=== PATIENT | female | born 1965 | race Caucasian/White ===

== ENCOUNTER 2025-06-11 09:56 | Outpatient (CLI) | payer BC ==
[2025-06-11 11:57] LABS: #Basophils 0.08 10x3/uL (0.0-0.2); #Eosinophils 0.37 10x3/uL (0.0-0.7); #Monocytes 0.76 10x3/uL (0.11-0.59); #Neutrophils 4.20 10x3/uL (1.40-6.50); %Basophils 1.0 % (0.0-1.0); %Eosinophils 4.5 % (0.0-10.0); %Lymphocytes 33.3 % (21.0-51.0); %Monocytes 9.3 % (0.0-10.0); %Neutrophils 51.3 % (42.0-75.0); Hematocrit 43.6 % (36.0-47.0); Hemoglobin 14.3 g/dL (12.0-16.0); Mean Corpuscular Hemoglobin 30.7 pg (27.0-31.0); Mean Corpuscular Volume 93.6 fL (78.0-98.0); Platelet Count 239 10x3/uL (130-400); Red Blood Cell (RBC) Count 4.66 mill/uL (4.20-5.40); White Blood Cell (WBC) Count 8.19 10x3/uL (4.8-10.8)
[2025-06-11 12:15] LABS: ALT (SGPT) 21 U/L (Less than 34); AST (SGOT) 20 U/L (11-34); Albumin 3.6 g/dL (3.1-4.5); Alkaline Phosphatase 84 U/L (40-110); Anion Gap 15 mmol/L (10-20); BUN (Urea Nitrogen) 19 mg/dL (9.8-20.1); Bilirubin, Total 0.6 mg/dL (0.3-1.2); Calc. Creatinine Clearance 0 mL/min (70-130); Calcium 9.1 mg/dL (7.8-10.44); Carbon Dioxide 25 mmol/L (23-31); Chloride 107 mmol/L (98-107); Globulin 3.0 g/dL (2.4-3.5); Glucose 97 mg/dL (80-115); Potassium 3.7 mmol/L (3.5-5.1); Sodium 143 mmol/L (136-145)
[2025-06-11 12:20] LABS: INR-International Normal Ratio 1.0; Prothrombin Time 13.4 sec (12.0-14.7)
== END 2025-06-11 09:57 | disposition home or self-care (01) ==
LOC: LABBT 09:56
PROVIDERS: ATTEND Orthopaedic Surgery
DX: Z01.818 Encounter for other preprocedural examination (principal); M17.11 Unilateral primary osteoarthritis, right knee
CPT/HCPCS: 80053; 85025; 85610; 87081; 93005; 93010

== ENCOUNTER 2025-06-11 10:40 | Outpatient (CLI) | payer BC | END 2025-06-11 10:41 | disposition home or self-care (01) | LOC: CT 10:40 | PROVIDERS: ATTEND Orthopaedic Surgery | DX: Z01.818 Encounter for other preprocedural examination (principal); M17.11 Unilateral primary osteoarthritis, right knee ==

== ENCOUNTER 2025-07-09 05:45 | Inpatient (IN) | payer BC ==
[2025-06-11 10:16] VITALS: BMI 41.4
[2025-07-09] MEDS ORDERED: Tranexamic Acid 1,000 MG/10 ML VIAL ONE (06:03)
[2025-07-09] MEDS ORDERED: Vancomycin HCl 1.5 GM VIAL ONE (06:04)
[2025-07-09] MEDS ORDERED: Bupivacaine 0.25% HCL 30 ML VIAL ONE (06:30)
[2025-07-09] MEDS ORDERED: CEFAZOLIN 2 GM VIAL ONE (06:56)
[2025-07-09] MEDS ORDERED: Lidocaine 1% PF 5 ML VIAL ONE (06:57)
[2025-07-09] MEDS ORDERED: PROPOFOL 20 ML ONE (06:57)
[2025-07-09] MEDS ORDERED: Ropivacaine 0.5% HCl/PF (150 MG/30 ML VIAL) ONE (07:40)
[2025-07-09] MEDS ORDERED: Ondansetron PF 4 MG/2 ML Vial ONE ×2 (08:47→13:57)
[2025-07-09] MEDS ORDERED: diphenhydrAMINE 25 MG CAP PO PRN (09:24)
[2025-07-09] MEDS ORDERED: Acetaminophen 325 MG TAB PO PRN (09:24)
[2025-07-09] MEDS ORDERED: fentaNYL PF 100 MCG/2 ML SYRINGE ONE ×3 (09:33→12:26)
[2025-07-09] MEDS ORDERED: HYDROmorphone 0.5 MG/0.5 ML SYRINGE ONE ×3 (09:54→11:40)
[2025-07-09] MEDS ORDERED: Ropivacaine 0.2% 550 ML 550 ML NERVE BLCK SCH (10:15)
[2025-07-09] MEDS: Aspirin 81 mg Enteric Coated Tablet PO SCH (15:33)
[2025-07-09] MEDS: Ketorolac Tromethamine 30 MG (1 mL) VIAL IM SCH (15:34)
[2025-07-09] MEDS: Ondansetron PF 4 MG/2 ML Vial IVP PRN (15:58)
[2025-07-09] MEDS: HYDROcodone/Acetaminophen 10/325 mg Tablet PO PRN (17:31)
[2025-07-09] MEDS: Lisinopril 10 MG TAB PO SCH (20:21)
[2025-07-10] MEDS: HYDROcodone/Acetaminophen 10/325 mg Tablet PO PRN (00:05)
[2025-07-10 04:56] LABS: Hematocrit 35.2 % (36.0-47.0); Hemoglobin 11.6 g/dL (12.0-16.0); Mean Corpuscular Hemoglobin 31.3 pg (27.0-31.0); Mean Corpuscular Volume 94.9 fL (78.0-98.0); Platelet Count 170 10x3/uL (130-400); Red Blood Cell (RBC) Count 3.71 mill/uL (4.20-5.40); White Blood Cell (WBC) Count 9.62 10x3/uL (4.8-10.8)
[2025-07-10] MEDS: Ferrous Gluconate 324 MG TAB PO SCH (09:17)
[2025-07-10] MEDS: Multivitamin W/ Minerals 1 TAB PO SCH (09:18)
[2025-07-10] MEDS: Senokot S 8.6-50 MG TAB PO SCH (09:18)
[2025-07-11 08:14] LABS: Hematocrit 33.3 % (36.0-47.0); Hemoglobin 10.8 g/dL (12.0-16.0); Mean Corpuscular Hemoglobin 31.0 pg (27.0-31.0); Mean Corpuscular Volume 95.7 fL (78.0-98.0); Platelet Count 166 10x3/uL (130-400); Red Blood Cell (RBC) Count 3.48 mill/uL (4.20-5.40); White Blood Cell (WBC) Count 9.13 10x3/uL (4.8-10.8)
[2025-07-11 09:29] VITALS: BP 118/68; TEMP 98.2
== END 2025-07-11 11:25 | disposition home or self-care (01) | DRG 470 ==
LOC: SDC 05:45 → SURG B 14:32 → OBSVTOIN 07-10 16:27
PROVIDERS: ADMIT Orthopaedic Surgery; ATTEND Orthopaedic Surgery
PROC: 0SRC0JZ Replacement of Right Knee Joint with Synthetic Substitute, Open Approach (ICD-10-PCS; principal; 2025-07-09)
DX: M17.11 Unilateral primary osteoarthritis, right knee (principal)
CPT/HCPCS: 36415; 36416; 85027; A4306; C1713; C1776; C1889; J0169; J0665; J1100; J1171; J1885; J2250; J2405; J2550; J2704; J2795; J3010; J7030